=== PATIENT | male | born 1985 | race African-American/Black ===

== ENCOUNTER 2017-01-07 20:35 | Emergency (ER) | payer SELFPAY ==
[~2017-01-07] VITALS: Ht 180.3 cm; Wt 150.5 kg
[2017-01-07 20:41] VITALS: BP 182/114; PULSE 90; RESP 18; TEMP 98.2; O2SAT 99
--- NOTE | 2017-01-07 21:12 | PD ---
HPI Chief Complaint: Chest Pain Time Seen by Provider: 21:04 Travel History International Travel<30 days: No Contact w/Intl Traveler<30days: No Traveled to known affect area: No History of Present Illness HPI The patient is a 31-year-old male who complains of a sharp, pleuritic chest pain which is positional and tender that the touch for about a week. He does not smoke. He denies any fever. He has had a minimal cough occasionally productive of white sputum. He denies any hemoptysis. He denies any nausea, vomiting or diarrhea. He denies any history of heart disease. [facility] Past Medical History Hypertension: Yes Medical other: Yes (vertigo) Tetanus Vaccination: Unknown Influenza Vaccination: Yes Social History Alcohol Use: No Tobacco Use: No Allergies-Medications (Allergen,Severity, Reaction): Coded Allergies: No Known Allergies (Unverified , 01/07/17) Reported Meds & Prescriptions Reported Meds & Active Scripts Active No Active Prescriptions or Reported Medications Review of Systems Except as stated in HPI: all other systems reviewed are Neg Physical Exam Narrative GENERAL: The patient is obese, alert, oriented 3 in minimal apparent distress with his chest pain. His vital signs show blood pressure 182/114 with heart rate of 90 but are otherwise normal. SKIN: Focused skin assessment warm/dry. HEAD: Atraumatic. Normocephalic. EYES: Pupils equal and round. No scleral icterus. No injection or drainage. ENT: No nasal bleeding or discharge. Mucous membranes pink and moist. NECK: Trachea midline. No JVD. CARDIOVASCULAR: Regular rate and rhythm. No murmur appreciated. RESPIRATORY: No accessory muscle use. Clear to auscultation. Breath sounds equal bilaterally. I can completely reproduce the patient's chest pain by pressing on the chest wall. GASTROINTESTINAL: Abdomen soft, non-tender, nondistended. Hepatic and splenic margins not palpable. No guarding or rebound is present. MUSCULOSKELETAL: No obvious deformities. No clubbing. No cyanosis. No edema. NEUROLOGICAL: Awake and alert. No obvious cranial nerve deficits. Motor grossly within normal limits. Normal speech. PSYCHIATRIC: Appropriate mood and affect; insight and judgment normal. Data Data Last Documented VS Vital Signs Date Time Temp Pulse Resp B/P Pulse Ox O2 Delivery O2 Flow Rate FiO2 01/07/17 21:45 80 18 169/99 98 Room Air 01/07/17 20:41 98.2 Orders Chest, Pa & Lat (01/07/17 21:08) Electrocardiogram (01/07/17 21:12) Basic Metabolic Panel (Bmp) (01/07/17 21:12) Complete Blood Count With Diff (01/07/17 21:12) Troponin I (01/07/17 21:12) Ecg Monitoring (01/07/17 21:12) Iv Access Insert/Monitor (01/07/17 21:12) Oximetry (01/07/17 21:12) Oxygen Administration (01/07/17 21:12) Sodium Chloride 0.9% Flush (Ns Flush) (01/07/17 21:15) Hydralazine Inj (Apresoline Inj) (01/07/17 21:15) Ketorolac Inj (Toradol Inj) (01/07/17 21:30) Labs Laboratory Tests Test 01/07/17 21:30 White Blood Count 4.5 TH/MM3 Red Blood Count 4.96 MIL/MM3 Hemoglobin 13.1 GM/DL Hematocrit 39.8 % Mean Corpuscular Volume 80.4 FL Mean Corpuscular Hemoglobin 26.5 PG Mean Corpuscular Hemoglobin 32.9 % Concent Red Cell Distribution Width 13.0 % Platelet Count 287 TH/MM3 Mean Platelet Volume 7.8 FL Neutrophils (%) (Auto) 39.4 % Lymphocytes (%) (Auto) 42.5 % Monocytes (%) (Auto) 13.5 % Eosinophils (%) (Auto) 4.1 % Basophils (%) (Auto) 0.5 % Neutrophils # (Auto) 1.8 TH/MM3 Lymphocytes # (Auto) 1.9 TH/MM3 Monocytes # (Auto) 0.6 TH/MM3 Eosinophils # (Auto) 0.2 TH/MM3 Basophils # (Auto) 0.0 TH/MM3 CBC Comment DIFF FINAL Differential Comment Sodium Level 141 MEQ/L Potassium Level 3.4 MEQ/L Chloride Level 104 MEQ/L Carbon Dioxide Level 29.4 MEQ/L Anion Gap 8 MEQ/L Blood Urea Nitrogen 9 MG/DL Creatinine 0.86 MG/DL Estimat Glomerular Filtration 126 ML/MIN Rate Random Glucose 102 MG/DL Calcium Level 8.6 MG/DL Troponin I LESS THAN 0.02 NG/ML MDM Medical Decision Making Medical Screen Exam Complete: Yes Emergency Medical Condition: Yes Medical Record Reviewed: Yes Interpretation(s) The EKG shows sinus rhythm with rate of [address] elevation or depression. The CBC is normal. The basic metabolic profile shows a potassium of 3.4 but is otherwise unremarkable. The troponin I is normal. The chest x- ray is normal. Differential Diagnosis Pleurisy, chest wall pain, esophageal pain, gastrointestinal pain, acute coronary syndromeunlikely, pneumothoraxunlikely Narrative Course The patient has pleurisy. He should benefit from Motrin 800 mg 3 times a day taken regularly for a few days. He needs to follow-up with his primary care physician next week. There is no evidence for any of the more serious conditions listed above. Diagnosis Primary Impression: Pleurisy Additional Instructions: As we discussed, take the Motrin regularly to develop high anti-inflammatory levels. Usually after 2-3 days the pain starts to fade away. Follow-up with your primary care physician next week. Med/Other Pt SpecificInfo: Prescription(s) given Scripts Ibuprofen 800 Mg [id number] Mg PO TID #44 TAB Ref 0 Prov:Reilly Sweeney MD 01/07/17 Disposition: 01 DISCHARGE HOME Condition: Stable Reilly Sweeney MD Jan 07, 2017 21:12
[2017-01-07 21:15] VITALS: BP 169/104; PULSE 85; RESP 16; O2SAT 99
[2017-01-07] MEDS ORDERED: hydrALAZINE HCL 20 MG/ML VIAL IV PUSH ONE (21:15)
[2017-01-07] MEDS ORDERED: SODIUM CHLORIDE 0.9% FLUSH 10 ML FLUSH IVF PRN (21:15)
--- NOTE | 2017-01-07 21:27 | RADRPT ---
EXAM DATE/TIME: 01/07/2017 21:15 [place] COMPARISON: No previous studies available for comparison. INDICATIONS : Left chest pain. MEDICAL HISTORY : None. SURGICAL HISTORY : None. ENCOUNTER: Initial ACUITY: 1 week PAIN SCORE: 3/10 LOCATION: Left chest FINDINGS: PA and lateral views of the chest demonstrate the lungs to be symmetrically aerated without evidence of mass, infiltrate or effusion. The cardiomediastinal contours are unremarkable. Osseous structure s are intact. CONCLUSION: No acute disease. Macho Rosas MD on January 07, 2017 at 21:24 Board Certified Radiologist. This report was verified electronically.
[2017-01-07] MEDS ORDERED: KETOROLAC TROMETHAMINE 60 MG/2 ML (IM) VIAL IVP ONE (21:30)
[2017-01-07 21:42] LABS: AUTOMATED NEUTROPHIL # 1.8 TH/MM3 (1.8-7.7); BASOPHIL % 0.5 % (0.0-2.0); EOSINOPHIL # 0.2 TH/MM3 (0-0.4); EOSINOPHIL % 4.1 % (0.0-4.0); HEMATOCRIT 39.8 % (39.0-51.0); HEMO FLAGS DIFF FINAL; LYMPH % 42.5 % (9.0-44.0); LYMPHOCYTE # 1.9 TH/MM3 (1.0-4.8); MEAN CELL VOLUME 80.4 FL (80.0-100.0); MEAN CORPUSCULAR HEMOGLOBIN 26.5 PG (27.0-34.0); MEAN CORPUSCULAR HGB CONC 32.9 % (32.0-36.0); MONO % 13.5 % (0.0-8.0); NEUT % 39.4 % (16.0-70.0); PLATELET COUNT 287 TH/MM3 (150-450); RED BLOOD COUNT 4.96 MIL/MM3 (4.50-5.90); WHITE BLOOD COUNT 4.5 TH/MM3 (4.0-11.0)
[2017-01-07 21:45] VITALS: BP 169/99; PULSE 80; RESP 18; O2SAT 98
[2017-01-07 21:50] LABS: CHLORIDE 104 MEQ/L (98-107); POTASSIUM 3.4 MEQ/L (3.5-5.1); SODIUM (NA) 141 MEQ/L (136-145)
[2017-01-07 21:53] LABS: ANION GAP 8 MEQ/L (5-15); BICARBONATE 29.4 MEQ/L (21.0-32.0); BLOOD UREA NITROGEN 9 MG/DL (7-18)
[2017-01-07 21:56] LABS: GLOMERULAR FILTRATION RATE 126 ML/MIN (>89)
[2017-01-07 22:10] VITALS: BP 154/76; PULSE 86; RESP 17; O2SAT 98
[2017-01-07] MEDS ORDERED: IBUP800T23 PO (22:21)
[2017-01-07 22:29] VITALS: BP 151/75
--- NOTE | 2017-01-08 06:59 | EKG ---
Date Performed: 01/07/2017 Time Performed: 20:55:15 PTAGE: 31 years EKG: Sinus rhythm MODERATE INTRAVENTRICULAR CONDUCTION DELAY NONSPECIFIC T-WAVE ABNORMALITY BORDERLINE ECG INTERPRETAT ION BASED ON A DEFAULT AGE OF 40 YEARS NO PREVIOUS TRACING DOCTOR: Oswaldo Reeves Interpretating Date/Time 01/08/2017 06:58:26
== END 2017-01-07 22:42 | disposition home or self-care (01) ==
LOC: PHED 20:35
DX: R09.1 Pleurisy (principal); I10 Essential (primary) hypertension
CPT/HCPCS: 71020; 80048; 84484; 85025; 93005; 96374; 96375; 99285; J0360; J1885